=== PATIENT | female | born 1990 | race Caucasian/White ===

== ENCOUNTER 2017-04-16 18:27 | Emergency (ER) | payer SELFPAY ==
[~2017-04-16] VITALS: Ht 172.7 cm; Wt 86.2 kg
--- NOTE | 2017-04-16 18:45 | NUR ---
BIB SELF C/O TAMPON STUCK IN VAGINA ~ 5 DAYS. PAIN, DISCHARGE PRESENT, NAD NOTED, VSS, PUT ON HOSPITAL GOWN,PELVIC EXAM DONE AND EVALUATED BY MD, IV STARTED AND BLOOD AND URINE SAMPLE SENT TO LAB.
[2017-04-16 19:11] LABS: BASOPHILS # (AUTO) 0.1 /CMM (0.0-0.2); BASOPHILS % (AUTO) 0.4 % (0.0-2.0); EOSINOPHILS # (AUTO) 0.2 /CMM (0.0-0.7); EOSINOPHILS % (AUTO) 1.7 % (0.0-6.0); HEMATOCRIT 42 % (33-45); LYMPHOCYTES # (AUTO) 2.2 /CMM (0.8-4.8); LYMPHOCYTES % (AUTO) 15.9 % (20.0-44.0); MEAN CORPUSCULAR HEMOGLOBIN 30 PG (26.0-33.0); MEAN CORPUSCULAR HGB CONC 33 g/dl (31.0-36.0); MEAN CORPUSCULAR VOLUME 91 fL (82-100); MONOCYTES # (AUTO) 0.7 /CMM (0.1-1.30); MONOCYTES % (AUTO) 4.9 % (2.0-12.0); NEUTROPHILS # (AUTO) 10.8 /CMM (1.8-8.9); NEUTROPHILS % (AUTO) 77.1 % (43.0-81.0); PLATELET COUNT (AUTO) 416 /CMM (150-450); RDW COEFFICIENT OF VARIATION 11.5 (11.5-15.0); RED BLOOD CELL COUNT(AUTO) 4.65 MIL/uL (4.0-5.2)
[2017-04-16 19:22] LABS: CALCIUM, SERUM 9.3 mg/dL (8.5-10.1); POTASSIUM 3.7 mmol/L (3.5-5.1)
[2017-04-16] MEDS ORDERED: KETOROLAC TROMETHAMINE INJ 30 MG/ML VIAL ONE (21:00)
[2017-04-16 21:26] LABS: APPEARANCE,URINE Slightly Cloudy (CLEAR); BILIRUBIN,URINE Negative (NEGATIVE); BLOOD, URINE Small Ery/uL (NEGATIVE); COLOR,URINE Light yellow (YELLOW); KETONES,URINE Trace (NEGATIVE); LEUKOCYTE ESTERASE ,URINE Negative (NEGATIVE); NITRITE, URINE Negative (NEGATIVE); PROTEIN,URINE Negative (NEGATIVE); UGLUCOSE Negative (NEGATIVE); UROBILINOGEN,URINE 0.2 EU/dL (0.2)
[2017-04-16 21:32] LABS: BACTERIA,URINE Few /HPF (None Seen); SQUAMOUS EPITHELIAL CELL,UR Few /HPF (None Seen); WBC,URINE 0-2 /HPF (0-3)
[2017-04-16] MEDS ORDERED: KETOROLAC TROMETHAMINE INJ 30 MG/ML VIAL IV ONE (22:00)
[2017-04-16] MEDS ORDERED: clonazePAM 1 MG TABLET ONE (22:12)
[2017-04-16] MEDS ORDERED: clonazePAM 1 MG TABLET PO ONE (22:30)
--- NOTE | 2017-04-16 23:24 | NUR ---
Patient discharged to home in stable condition. Written and verbal after care instructions given. Patient verbalizes understanding of instruction. IV removed. Catheter intact and site benign. Pressure and 4x4 applied to site. No bleeding noted.
[2017-04-16 23:25] VITALS: BP 134/89
== END 2017-04-16 23:35 | disposition home or self-care (01) ==
LOC: ER 18:33
DX: N83.201 Unspecified ovarian cyst, right side (principal); R10.2 Pelvic and perineal pain; I10 Essential (primary) hypertension; F41.9 Anxiety disorder, unspecified
CPT/HCPCS: 36415; 76856; 80048; 81001; 84702; 85025; 96374; 99285; A4606; J1885; Z7610; 81000-TC

== ENCOUNTER 2017-05-23 20:42 | Inpatient (IN) | payer BC ==
[~2017-05-23] VITALS: Ht 172.7 cm; Wt 89.4 kg
--- NOTE | 2017-05-23 20:45 | NUR ---
CLAIR [id number]. "MIGRAINE x1 DAY. NECK PAIN RADIATES TO L TEMPLENE C/O N/V x3 DAYS "RINGING EARS, THINGS LOOK BLURRY, AND LEFT SIDE OF FACE FEELS FUNNY.", NAD NOTED, VSS, RESP EVEN AND UNLABORED, PT WAS PUT ON HOSPITAL GOWN AND MONITOR. WAITING FOR MD HUITRON.
--- NOTE | 2017-05-23 21:00 | NUR ---
DILSHAD LANZA AT BS
[2017-05-23] MEDS ORDERED: ACETAMINOPHEN ES 500 MG TABLET ONE (21:14)
[2017-05-23] MEDS ORDERED: ONDANSETRON HCL/PF 4 MG/2 ML VIAL ONE (21:29)
[2017-05-23] MEDS ORDERED: IV NS 0.9% 1,000 ML BAG IV ONE (21:30)
[2017-05-23] MEDS ORDERED: ACETAMINOPHEN ES 500 MG TABLET PO ONE (21:30)
[2017-05-23] MEDS ORDERED: ONDANSETRON HCL/PF 4 MG/2 ML VIAL IV ONE (21:30)
[2017-05-23] MEDS ORDERED: clonazePAM 1 MG TABLET ONE (22:27)
[2017-05-23] MEDS ORDERED: clonazePAM 1 MG TABLET PO ONE (22:30)
[2017-05-23] MEDS ORDERED: HYDROMORPHONE 1 MG/1 ML DISP.SYRIN IV ONE (22:30)
[2017-05-23] MEDS ORDERED: MORPHINE SULFATE INJ 4 MG/ML DISP.SYRIN ONE ×2 (22:30→23:11)
[2017-05-23] MEDS ORDERED: MORPHINE SULFATE INJ 2 MG/ML DISP.SYRIN IV ONE ×2 (23:00→23:30)
--- NOTE | 2017-05-23 23:17 | NUR ---
PAGED EPIC FOR PANEL
--- NOTE | 2017-05-23 23:25 | NUR ---
CALLED FOR TELE BED - [phone]
--- NOTE | 2017-05-23 23:37 | NUR ---
REPORT GIVEN TO JAN
[2017-05-23 23:45] VITALS: BP 150/85
--- NOTE | 2017-05-23 23:45 | NUR ---
TELE/PROOF COIN COLLECTOR; PT CAME FROM ER VIA GURNEY ACCOMPANIED BY 2 ER MALE STAFFS ADMISSION. PT AWAKE , ALERT AND ORIENTED X 4. PT ABLE TO TALK CLEARLY AND COHERENT. PT WAS WALKING TO BED WHEN ER MALE STAFFS TRANSFERRED HER TO BED. PT SKAGGS HL ON LAC # 18 INTACT. PT ADMITTED WITH DX ; HEADACHE R/O CVA / TIA. PT HAS NO WEAKNESS ON ALL HER EXTREMITIES. PT SAID SHE WALKED TO THE BATHROOM IN THIS ROOM TO VOID. PT. SAID SHE WAS HAVING SLIGHT BLURRY VISION BEFORE, NECK PAIN NO N/V AT THIS TIME. LT SIDE OF HER FACE SLIGHT FACIAL DROP. PT WAS SAYING HAVING BELLS PALSY. ABLE TO TALK CLEARLY. NO ARMS DRIFT. SHE SAID SHE CAN SEE AND COUNTS MY FINGERS INTO 5 FINGERS. PER INBOUND CALL CENTER AGENT'S REPORTS PT I NOT A STROKE PT. ALSO ER SAID MD IS AWARE OF THE ADMISSION.PT INSTRUCTED TO CALL FOR HELP WHEN SHE GOES TO THE BATHROOM. INSTRUCTED ALSO HOW TO OPERATE THE CALL LIGHT. WILL CONTINUE TO MONITOR. Addendum: 05/24/17 at 0347 by FABI HONG PROOF COIN COLLECTOR AT 2345 HOURS ADMISSION CORRECTION NOT LT SIDE FACE BUT RT SIDE OF HER FACE SLIGHT DROOPING.
[2017-05-24] MEDS ORDERED: ONDANSETRON HCL/PF 4 MG/2 ML VIAL IVP PRN
[2017-05-24] MEDS ORDERED: CLONIDINE HCL 0.1 MG TABLET PO PRN
[2017-05-24] MEDS ORDERED: ZOLPIDEM TARTRATE 5 MG TABLET PO PRN
--- NOTE | 2017-05-24 | NUR ---
TELE/ORNAMENTAL PAINTER; PT PLACED ON PROJECT MANAGEMENT MANAGER.
[2017-05-24 00:43] LABS: BASOPHILS % (AUTO) 0.5 % (0.0-2.0); EOSINOPHILS # (AUTO) 0.4 /CMM (0.0-0.7); EOSINOPHILS % (AUTO) 4.2 % (0.0-6.0); HEMATOCRIT 40 % (33-45); HEMOGLOBIN 13.7 g/dL (11.5-14.8); LYMPHOCYTES # (AUTO) 2.7 /CMM (0.8-4.8); LYMPHOCYTES % (AUTO) 28.5 % (20.0-44.0); MEAN CORPUSCULAR HEMOGLOBIN 30 PG (26.0-33.0); MEAN CORPUSCULAR HGB CONC 34 g/dl (31.0-36.0); MEAN CORPUSCULAR VOLUME 88 fL (82-100); MONOCYTES # (AUTO) 0.5 /CMM (0.1-1.30); MONOCYTES % (AUTO) 5.4 % (2.0-12.0); NEUTROPHILS # (AUTO) 5.8 /CMM (1.8-8.9); NEUTROPHILS % (AUTO) 61.4 % (43.0-81.0); PLATELET COUNT (AUTO) 386 /CMM (150-450); RDW COEFFICIENT OF VARIATION 12.5 (11.5-15.0); WHITE BLOOD COUNT (AUTO) 9.5 K/uL (4.3-11.0)
[2017-05-24] MEDS ORDERED: ASPIRIN EC 325 MG TABLET.DR PO ONE (00:43)
[2017-05-24] MEDS ORDERED: AMLODIPINE BESYLATE 5 MG TABLET ONE (00:43)
--- NOTE | 2017-05-24 00:45 | NUR ---
TELE/CONTINUING EDUCATION SPECIALIST; PT REFUSED TO TAKE ECOTRIN 325 MG 1 TAB. AND NORVASC 5MG PO . INSTEAD SHE WANTS MUSCLE RELAXANT SOMA . I TOLD THE PT I WILL CALL THE DOCTOR.
[2017-05-24 01:06] LABS: ALANINE AMINOTRANSFERASE 17 U/L (12-78); ALBUMIN 4.1 g/dL (3.4-5.0); ALKALINE PHOSPHATASE 73 U/L (46-116); ASPARTATE AMINOTRANSFERASE 14 U/L (15-37); BILIRUBIN,TOTAL 0.3 mg/dL (0.2-1.0); CALCIUM, SERUM 8.9 mg/dL (8.5-10.1); CARBON DIOXIDE 32 mmol/L (21-32); CHLORIDE 104 mmol/L (98-107); CREATININE 0.8 mg/dL (0.6-1.3); GLUCOSE 97 mg/dL (74-106); MAGNESIUM 2.2 mg/dL (1.8-2.4); PHOSPHORUS 4.1 mg/dL (2.5-4.9); POTASSIUM 3.7 mmol/L (3.5-5.1); SODIUM SERUM 142 mmol/L (136-145); TOTAL PROTEIN, SERUM 7.6 g/dL (6.4-8.2); TROPONIN I < 0.017 ng/mL (0.00-0.056); UREA NITROGEN, BLOOD 13 mg/dL (7-18)
[2017-05-24 01:11] LABS: CHOLESTEROL 198 mg/dL (<200); HDL CHOLESTEROL 58 mg/dL (40-60); LDL 112 mg/dL (0-99); THYROID STIMULATING HORMONE 2.501 uIU/mL (0.358-3.74); TRIGLYCERIDES 200 mg/dL (30-150)
--- NOTE | 2017-05-24 01:15 | NUR ---
TELE/CORE SUCKER; I PLACED A CALL TO DR. HERNANDEZ WHO IS EVENT ATTENDANT AND I NOTIFIED HIM THAT PT REFUSED THE ORDERED MEDS; OF ECOTRIN 325 MG 1 TAB. PO AND NORVASC 5 MG 1 TAB.PO BOTH ORDERED BY HSPT TUTOR, ORESTES WILLARD. ALSO I TOLD DR. HERNANDEZ PT WANTS MUSCLE RELAXANT SOMA AND ALSO IVF. DR. HERNANDEZ ORDERED ONLY SOMA 350 MG 1 TAB. PO Q8 PRN . NO IVF.
[2017-05-24] MEDS ORDERED: CARISOPRODOL 350 MG TABLET ONE (01:28)
[2017-05-24] MEDS: CARISOPRODOL 350 MG TABLET PO PRN ×3 (01:30→18:02)
--- NOTE | 2017-05-24 01:30 | NUR ---
TELE/TRIPE FINISHER; PT ON SR 98. SOMA 350 MG 1 TAB. PO Q8 PRN GIVEN AND PT ABLE TO SWALLOW WITHOUT PROBLEM.
--- NOTE | 2017-05-24 02:30 | NUR ---
TELE/BUCKLE WIRE INSERTER; PT CHECKED SLEEPING AT THIS TIME. BREATHING NON LABORED AND EVEN.
[2017-05-24 04:00] VITALS: BP 130/81
[2017-05-24 04:10] VITALS: BP 130/81
--- NOTE | 2017-05-24 04:10 | NUR ---
TELE/STUBBER; PT WOKE UP CALLED C/O SKAGGS WITH PAIN LEVEL OF 8 OUT OF 10. BP ON LA 130/ 81 , P 79, R 18, O2 SAT RA 100 % . I INFORMED THE CHARGE NURSE THAT PT WANTS PAIN SHOT OF MORPHINE FOR C/O SKAGGS . ALSO PT ASKED VANILLA PUDDING GIVEN AND ORANGE JUICE GIVEN.
[2017-05-24] MEDS ORDERED: MORPHINE SULFATE INJ 2 MG/ML DISP.SYRIN ONE (04:20)
[2017-05-24] MEDS: MORPHINE SULFATE INJ 2 MG/ML DISP.SYRIN IV PRN ×2 (04:28→20:24)
--- NOTE | 2017-05-24 04:40 | NUR ---
TELE/TRACTOR MECHANIC HELPER; PT REFUSED DVT PUMP TO BOTH OF HER LOWER LEGS.
--- NOTE | 2017-05-24 05:40 | NUR ---
TELE/SEO ASSOCIATE; PT CALLED AGAIN FOR PAIN SHOT FOR HER HEADACHE. I TOLD THE PT NOT TIME YET.
--- NOTE | 2017-05-24 06:20 | NUR ---
TELE/TAX AUDITOR; PT'S MOTHER FERNANDA FROM [place], [place] CALLED WANTS TO KNOW PT'S CONDITION . SHE KNOWS PT WAS ADMITTED AND WHAT'S GOING AND I TOLD HER THAT PT STILL HAVING HEADACHE. PT'S MOTHER WILL CALL BACK LATER ON.
--- NOTE | 2017-05-24 07:00 | NUR ---
TELE/VEST BACKER; AGAIN PT'S MOTHER CALLED R/T PT'S INSURANCE I TOLD HER JUST FAX IT AND I GIVE HER THE 3 WEST FAX NUMBERS. AND I TOLD HER TO CALL BACK AND CHECK WHETHER THE FAX CARRIED AND TALK TO THE DOCTORS ABOUT HER CONCERN OF THE PT. SHE SAID SHE WILL BACK. PT ON SR 81. CONTINUE TO MONITOR. WILL ENDORSE TO [facility] DAY SHIFT NURSE.
[2017-05-24 07:21] VITALS: BP 122/80
--- NOTE | 2017-05-24 07:23 | NUR ---
RN INITIAL NOTES REPORT RECEIVED AT THE BEDSIDE. PATIENT IS RESTING IN BED. NO SOB OR DISTRESS NOTED AT THIS TIME. PATIENT REPORTS PAIN NOT ALLEVIATED BY PAIN MEDICATIONS; ASKING FOR MORE. NIGHT RN HAS BEEN IN CONTACT WITH MD; HE STATES NO MORE MEDICATION THAN WHAT IS ORDERED. WILL FOLLOW UP WITH MORE PAIN MEDICATION WHEN DUE. PT HEART RATE SR IN THE 80'S. BED IN A LOW POSITION, CALL LIGHT WITHIN PATIENT REACH, WILL CONTINUE TO MONITOR.
[2017-05-24] MEDS: PANTOPRAZOLE 40 MG TABLET.DR PO SCH (07:30)
[2017-05-24] MEDS ORDERED: CLON1TAB4 PO (08:16)
[2017-05-24] MEDS ORDERED: IBUPROFEN 600 MG TABLET PO ONE (08:30)
[2017-05-24] MEDS ORDERED: ASPIRIN 325 MG TABLET PO ONE (08:30)
[2017-05-24] MEDS ORDERED: ACETAMINOPHEN 325 MG TABLET PO ONE (08:30)
[2017-05-24] MEDS: AMLODIPINE BESYLATE 5 MG TABLET PO SCH ×2 (08:43)
[2017-05-24] MEDS: ASPIRIN EC 325 MG TABLET.DR PO SCH ×2 (08:43)
[2017-05-24] MEDS: clonazePAM 0.5 MG TABLET PO PRN ×2 (13:27→21:33)
--- NOTE | 2017-05-24 14:45 | NUR ---
PLACED ORDER FOR STAT PT, PTT INR COAGULATION STUDIES FOR THE PATIENT. CALLED PHARMACY TO INFORM. [facility] IN PHARMACY STATES THEY ONLY HAVE ONE CARBONATOR AT THIS TIME AND WILL COME SOON THEY CAN. INFORMED [facility] THAT THE PATIENT NEEDS THE COAGULATION STUDY STAT THEY ARE WAITING ON A LUMBAR TEST.
[2017-05-24 16:00] VITALS: BP 159/100
[2017-05-24] MEDS: ACETAMINOPHEN 325 MG TABLET PO PRN (16:00)
[2017-05-24] MEDS ORDERED: GADOVERSETAMIDE 5 MMOL/10 ML VIAL ONE (16:14)
--- NOTE | 2017-05-24 17:05 | NUR ---
PT BP IS HIGH. 161/110. PT REFUSING TO TAKE PRN CATAPRESS. PATIENT IS THREATENING TO LEAVE AMA WE ARE NOT ABLE TO GIVE HER PAIN MEDICATIONS PER DR JETER'S ORDERS. WILL CALL MD TO INFORM.
[2017-05-24 17:15] LABS: INR 0.94 (0.87-1.13); PROTHROMBIN TIME 9.8 SECS (9.5-12.7)
[2017-05-24] MEDS ORDERED: KETOROLAC TROMETHAMINE INJ 30 MG/ML VIAL IV STA (17:41)
--- NOTE | 2017-05-24 17:45 | NUR ---
RECEIVED A CALL BACK FROM DR JETER. INFORMED MD THAT LUMBAR PUNCTURE CAN NOT BE PERFORMED TONIGHT. MD GAVE OK TO CONTINUE ALL PAIN MEDICATIONS AND MUSCLE RELAXERS. MD ALSO ORDERED A ONE TIME DOSE OF TORADOL 30MG IV. ORDERS PLACED, WILL CARRY OUT.
--- NOTE | 2017-05-24 19:33 | NUR ---
PT RESTING IN BED. NO SOB OR DISTRESS NOTED AT THIS TIME. PATIENT REPORTS PAIN, BUT THAT IT IS BETTER THAN BEFORE. PATIENT IS DUE FOR LUMBAR PUNCTURE IN AM. DR JETER AWARE. REPORT GIVEN TO PENNIE FOR SAM. BED IN A LOW POSITION AND CALL LIGHT WITHIN PATIENT REACH.
--- NOTE | 2017-05-24 20:00 | NUR ---
MS RN OPENING NOTES: RECEIVED PATIENT ON BED, AWAKE, WITH HEPLOCK ON LEFT AC GAUGE #20. NO SIGNS OF REDNESS OR PHLEBITIS NOTED ON SITE. PATIENT APPEARS ANXIOUS AND FOCUSED ON HER PAIN STATUS. PER PATIENT NOTHING IS REALLY HELPING HER PAIN AT TALL. PATIENT EDUCATED ABOUT HER PAIN MEDICATIONS. GIVEN MORPHINE MEDICATION A PRN ORDER. WILL MONITOR PATIENT'S PAIN STATUS. SAFETY AND FALL PRECAUTIONS OBSERVED PATIENT HAS BEEN GIVEN PAIN MEDS. PATIENT'S MOTHER- FERNANDA ALBERTO UPDATED ABOUT PATIENT'S CONDITION. WILL CONTINUE TO MONITOR PATIENT.
[2017-05-24 20:12] VITALS: BP 124/85
[2017-05-24] MEDS ORDERED: SIMVASTATIN 10 MG TABLET PO SCH (22:00)
--- NOTE | 2017-05-24 22:25 | NUR ---
MS RN: PATIENT IN EXCRUCIATING PAIN SHE DESCRIBES. SPOKE WITH SUZE CARLISLE WITH ORDERS TO GIVE ADDITION DOSE OF MORPHINE 2MG IV ONCE. WILL CARRY OUT ORDERS. WILL MONITOR PATIENT'S PAIN STATUS.
[2017-05-24] MEDS ORDERED: MORPHINE SULFATE INJ 2 MG/ML DISP.SYRIN IV PRN (22:30)
--- NOTE | 2017-05-25 | NUR ---
MS RN: PATIENT'S MOTHER UPDATED ABOUT PATIENT'S CONDITION, PER MOTHER SHE WANTS THE CHARGE NURSE TO CALL HER HOWEVER THE PATIENT REQUESTED THAT WE DO NOT CALL THE MOTHER. PER PATIENT, "SHE IS ONLY GONNA MAKE THE MATTERS WORST."
--- NOTE | 2017-05-25 01:45 | NUR ---
MS RN: PAGED DR. HERNANDEZ- PATIENT IS IN A LOT OF PAIN, DESCRIBED VERY EXCRUCIATING PAIN. DR. HERNANDEZ CALLED BACK WITH ORDERS TO GIVE PATIENT DILAUDID 1 MG IV Q3HRS PRN FOR PAIN. AND TO DISCONTINUE MORPHINE MEDICATION ORDERS. ORDERS NOTED AND CARRIED OUT.
[2017-05-25] MEDS ORDERED: HYDROMORPHONE 1 MG/1 ML DISP.SYRIN IV PRN (02:00)
--- NOTE | 2017-05-25 02:00 | NUR ---
MS RN: PATIENT IN BED, ASLEEP, NO SIGNS OF FACIAL GRIMACE NOTED THIS TIME.
--- NOTE | 2017-05-25 02:45 | NUR ---
MS RN: PATIENT IN BED, ASLEEP, NO SIGNS OF FACIAL GRIMACE NOTED THIS TIME. NO SIGNS OF PAIN.
[2017-05-25] MEDS: CARISOPRODOL 350 MG TABLET PO PRN ×2 (03:02→11:59)
--- NOTE | 2017-05-25 03:30 | NUR ---
MS RN: PLACED CALL FOR DR. HERNANDEZ RE: ORDER FOR DILAUDID TO BE CHANGED THERE IS NO STOCK OF MEDICATION. AWAITING FOR CALL BACK.
--- NOTE | 2017-05-25 05:15 | NUR ---
MS RN: PLACED CALL FOR DR HERNANDEZ THIS TIME. PATIENT STILL COMPLAINING OF PAIN ON HEAD AND NECK. PATIENT EXPLAINED THAT MORTAR WORKER HAS BEEN TRYING TO REACH DR. HERNANDEZ FOR OTHER ORDER OF PAIN MEDICATION. AWAITING FOR CALL BACK.
[2017-05-25 06:34] LABS: BASOPHILS % (AUTO) 0.6 % (0.0-2.0); EOSINOPHILS # (AUTO) 0.8 /CMM (0.0-0.7); EOSINOPHILS % (AUTO) 9.6 % (0.0-6.0); HEMATOCRIT 38 % (33-45); HEMOGLOBIN 12.5 g/dL (11.5-14.8); LYMPHOCYTES # (AUTO) 2.8 /CMM (0.8-4.8); LYMPHOCYTES % (AUTO) 33.7 % (20.0-44.0); MEAN CORPUSCULAR HEMOGLOBIN 29 PG (26.0-33.0); MEAN CORPUSCULAR HGB CONC 33 g/dl (31.0-36.0); MEAN CORPUSCULAR VOLUME 89 fL (82-100); MONOCYTES # (AUTO) 0.6 /CMM (0.1-1.30); MONOCYTES % (AUTO) 6.8 % (2.0-12.0); NEUTROPHILS # (AUTO) 4.1 /CMM (1.8-8.9); NEUTROPHILS % (AUTO) 49.3 % (43.0-81.0); PLATELET COUNT (AUTO) 329 /CMM (150-450); RDW COEFFICIENT OF VARIATION 12.2 (11.5-15.0); RED BLOOD CELL COUNT(AUTO) 4.27 MIL/uL (4.0-5.2); WHITE BLOOD COUNT (AUTO) 8.4 K/uL (4.3-11.0)
[2017-05-25 06:43] LABS: CALCIUM, SERUM 9.1 mg/dL (8.5-10.1); MAGNESIUM 1.8 mg/dL (1.8-2.4); PHOSPHORUS 4.1 mg/dL (2.5-4.9); POTASSIUM 3.3 mmol/L (3.5-5.1)
--- NOTE | 2017-05-25 07:00 | NUR ---
MS RN: PATIENT ON BED ASLEEP, EASILY AROUSES, STILL WITH COMPLAINTS OF PAIN. WILL ENDORSE PATIENT TO THE CARE OF THE DAY SHIFT NURSE.
--- NOTE | 2017-05-25 07:49 | NUR ---
RN OPEN NOTES RECEIVED REPORT FROM SUPERVISOR AREA NURSE. PATIENT IS IN BED, ALERT AND ORIENTED TO NAME, PLACE AND TIME. NO SIGNS AND SYMPTOMS OF DISTRESS. BED IN LOW POSITION, LOCKED AND TWO SIDE RAILS ARE UP. CALL LIGHT WITHIN REACH FOR SAFETY. WILL CONTINUE TO ASSES AND MONITOR PATIENT THOUGH OUT MY SHIFT
[2017-05-25 08:00] VITALS: BP 129/96
[2017-05-25] MEDS: ACETAMINOPHEN 325 MG TABLET PO PRN (08:56)
[2017-05-25] MEDS: PANTOPRAZOLE 40 MG TABLET.DR PO SCH (08:56)
[2017-05-25] MEDS: ASPIRIN EC 325 MG TABLET.DR PO SCH (08:58)
[2017-05-25] MEDS: AMLODIPINE BESYLATE 5 MG TABLET PO SCH ×2 (08:58→16:33)
--- NOTE | 2017-05-25 09:00 | NUR ---
PATIENT REFUSED BP NORVASC
[2017-05-25 09:34] LABS: EOSINOPHILS % (MANUAL) 3 % (0-4); LYMPHOCYTES % (MANUAL) 7 % (16-48); MONOCYTES % (MANUAL) 5 % (0-11.0); NEUTROPHILS % (MANUAL) 85 (42-76)
--- NOTE | 2017-05-25 10:25 | NUR ---
PATIENT IS OFF THE FLOOR FOR LP
[2017-05-25] MEDS ORDERED: LIDOCAINE HCL/PF 1% 30 ML SDV ONE (10:34)
--- NOTE | 2017-05-25 11:45 | NUR ---
PATIENT ARRIVED TO FLOOR FROM LP
[2017-05-25] MEDS: clonazePAM 0.5 MG TABLET PO PRN (11:59)
--- NOTE | 2017-05-25 12:15 | NUR ---
LP SPECIMEN DELIVERED TOP LAB. 4 TUBES, 12CC
[2017-05-25] MEDS ORDERED: POTASSIUM CHLORIDE 20 MEQ TAB.PRT.SR PO SCH (12:30)
[2017-05-25 14:21] LABS: CSF GLUCOSE 64 mg/dL (40-70)
[2017-05-25] MEDS ORDERED: HYDROCODONE/APAP 5/325MG 1 EACH TABLET PO PRN (14:30)
[2017-05-25] MEDS ORDERED: KETOROLAC TROMETHAMINE INJ 30 MG/ML VIAL IM ONE (15:30)
[2017-05-25] MEDS ORDERED: predniSONE 20 MG TABLET PO SCH (16:00)
--- NOTE | 2017-05-25 16:00 | NUR ---
HIGH BLOOD PRESSURE, NORVASC ADMINISTERED
[2017-05-25 17:30] VITALS: BP 166/124
--- NOTE | 2017-05-25 17:30 | NUR ---
SYSTOLIC BLOOD PRESSURE >160. CLONIDINE ADMINISTERED
--- NOTE | 2017-05-25 18:24 | NUR ---
SBP 162. PATIENT WOULD LIKE TO GET DISCHARGE. PATIENT SAID THAT HIGH BLOOD PRESSURE IS NORMAL FOR HER WHEN SHE IS UNDER STRESS. M0THER AT BEDSIDE
--- NOTE | 2017-05-25 18:40 | NUR ---
FOLLOW UP MANAGER NOTES PATIENT DISCHARGE ORDER RECEIVED AND JOSE LUIS OUT. PATIENT IS LEAVING IN A STABLE CONDITION. HIGH BLOOD PRESSURE NOTED UPON DISCHARGE, NORVASC AND CLONIDINE ADMINISTERED. PATIENT INSISTED ON LEAVING REGARDLESS OF HER HIGH BLOOD PRESSURE. PATIENT STARTED THAT THIS BLOOD PRESSURE IS NORMAL FOR HER WHEN SHE IS AT THE HOSPITAL, WHEN HER MOTHER IS AROUND AND WHEN SHE IS UNDER STRESS. ALL DISCHARGE INFORMATION EXPLAINED TO PATIENT AND PATIENT VERBALIZED UNDERSTANDING. ALL PERSONAL BELONGING WITH PATIENT AT TIME OF DISCHARGE. PATIENT SIGNED BOTH BELONGING FORM AND DISCHARGE INFO FORM; PLACED IN THE CHART. PRESCRIPTIONS GAVE TO PATIENT. IV SITE REMOVED. ID BAND REMOVED. MOTHER TOOK PATIENT HOME VIA A PRIVATE CAR.
[2017-05-27 08:10] LABS: *WEST NILE VIRUS IgG, CSF Negative (Negative)
[2017-05-27 10:37] LABS: *WEST NILE VIRUS IgM, CSF Negative (Negative)
[2017-05-27 11:27] LABS: VDRL, CSF Non Reactive (Non Rea:<1:1)
[2017-05-28 12:26] LABS: *BACT BETA STREP (GROUP B) AG Negative (Negative); *BACT NEISSERIA MENING. AG Negative (Negative); *BACT STREP PNEUMONIAE AG Negative (Negative); *CRYPTOCOCCUS AG, CSF Negative (Negative)
== END 2017-05-25 18:47 | disposition home or self-care (01) | DRG 74 ==
LOC: ER 20:50 → TELE 23:44 → MED 05-24 11:01
PROVIDERS: ADMIT Nurse Practitioner Acute Care; ATTEND Nurse Practitioner Acute Care
DX: G51.0 Bell's palsy (principal); A69.20 Lyme disease, unspecified; E66.9 Obesity, unspecified; E78.5 Hyperlipidemia, unspecified; F41.9 Anxiety disorder, unspecified; F17.200 Nicotine dependence, unspecified, uncomplicated; I10 Essential (primary) hypertension; G43.919 Migraine, unspecified, intractable, without status migrainosus; F12.10 Cannabis abuse, uncomplicated; G43.819 Other migraine, intractable, without status migrainosus
CPT/HCPCS: 36415; 62270; 70450-TC; 70553-TC; 71010-TC; 80048-TC; 80053-TC; 80061-TC; 83605-TC; 83735-TC; 84100-TC; 84443-TC; 84484-TC; 84703-TC; 85025-TC; 85610-TC; 85730-TC; 86592; 86635; 86694; 86788; 86789; 87070-TC; 87081-TC; 87802; 87899; 89051-TC; A4606; A9579; J1885; J2270; J2405; J3490; J7030; Z7610